=== PATIENT | male | born 1940 | race Caucasian/White ===

== ENCOUNTER 2018-10-05 12:52 | Observation (INO) | payer BC, MEDICARE, OTHER ==
[~2018-10-05] VITALS: Ht 180.3 cm; Wt 80.1 kg
--- NOTE | 2018-10-05 13:12 | NUR ---
REPORT FROM DEVIN QUIROZ. ASSUMED CARE OF PATIENT AT THIS TIME. PATIENT TO CT, AM[place].
--- NOTE | 2018-10-05 13:16 | NUR ---
EMS REPORTS PT HAS BEEN FALLING A LOT. SISTER CALLED EMS. SISTER REPORTS PT ALSO FELL IN LAST DEC. AND WAS IN ICU FOR A BRAIN BLEED. PT DID NOT SEE A NEUROLOGIST AFTER DISCHARGE. SISTER ALSO TOLD EMS THAT PATIENTS HAS BEEN DRINKING ALCOHOL AND FALLING A LOT. PT FELL 3 DAYS AGO. PT REPORTS LEFT SIDED SHOULDER PAIN. CALL LIGHT IN PLACE. REPORT GIVE TO DEVIN KLEIN
--- NOTE | 2018-10-05 13:48 | NUR ---
PATIENT TO XRAY VIA NADN. RAY
[2018-10-05 14:00] LABS: BASOPHILS # (AUTO) 0.02 x10^3/uL (0-0.1); BASOPHILS % (AUTO) 0 % (0-1); EOSINOPHILS # (AUTO) 0.04 x10^3/uL (0-0.4); EOSINOPHILS % (AUTO) 1 % (1-7); LYMPHOCYTES # (AUTO) 1.32 x10^3/uL (1-3.4); LYMPHOCYTES % (AUTO) 15 % (22-44); MD NO; MEAN PLATELET VOLUME 7.5 fL (7.4-10.4); MONOCYTES # (AUTO) 0.63 x10^3/uL (0.2-0.8); MONOCYTES % (AUTO) 7 % (2-9); NEUTROPHILS # (AUTO) 6.65 x10^3/uL (1.8-6.8); NEUTROPHILS % (AUTO) 77 % (42-75); PLATELET COUNT 267 x10^3/uL (130-400)
[2018-10-05 14:11] LABS: ALANINE AMINOTRANSFERASE 30 U/L (12-78); ALBUMIN 3.1 g/dL (3.4-5.0); ANION GAP 15 mmol/L (5-15); CALCIUM 8.6 mg/dL (8.5-10.1); CHLORIDE 101 mmol/L (98-107)
[2018-10-05 14:14] LABS: ALKALINE PHOSPHATASE 96 U/L (45-117); BILIRUBIN,TOTAL 0.7 mg/dL (0.2-1.0); TOTAL PROTEIN 6.7 g/dL (6.4-8.2)
[2018-10-05] MEDS ORDERED: ATOR-2 PO (14:42)
[2018-10-05] MEDS ORDERED: METO25TA35 PO (14:42)
[2018-10-05] MEDS ORDERED: ANTIDEPRESSANT (14:43)
[2018-10-05] MEDS ORDERED: HYDROmorphone 2 MG/ML, 1ML ONE (15:14)
--- NOTE | 2018-10-05 15:16 | NUR ---
PATIENT C/O 9/10 LT SHOULDER PAIN, ERP AWARE, NEW ORDERS, PAIN MEDICATIONS ADMINISTERED. [facility] TBADM, AWAITING BED ASSIGNMENT.
[2018-10-05] MEDS ORDERED: BACITRACIN ZINC OINT 500U/GM, 0.9 GM ONE (15:22)
--- NOTE | 2018-10-05 15:25 | NUR ---
PATIENT 78% RA POST PAIN MEDS, SUPPLEMENTAL O2 APPLIED, NOW 99% 2L NC.
[2018-10-05] MEDS ORDERED: HYDROmorphone 2 MG/ML, 1ML IVPush PRN (15:30)
--- NOTE | 2018-10-05 15:37 | NUR ---
REPORT TO DEVIN MATSON.
[2018-10-05 16:08] VITALS: BP 129/78
[2018-10-05] MEDS ORDERED: DOCUSATE 100 MG CAPSULE PO PRN (16:30)
[2018-10-05 19:31] VITALS: BP 127/78
[2018-10-05 20:06] VITALS: BP 132/86
[2018-10-05] MEDS: HEPARIN 5,000 UNITS/ML, 1ML SQ SCH (20:08)
[2018-10-05] MEDS: FAMOTIDINE 20 MG TABLET PO SCH (20:08)
[2018-10-05] MEDS: METOPROLOL TARTRATE 25 MG TABLET PO SCH (20:08)
[2018-10-06 00:34] VITALS: BP 127/64
[2018-10-06] MEDS ORDERED: ONDANSETRON 2MG/ML, 2ML ONE (01:01)
[2018-10-06] MEDS: ONDANSETRON 2MG/ML, 2ML IVPush PRN (01:04)
[2018-10-06 05:13] LABS: BASOPHILS # (AUTO) 0.02 x10^3/uL (0-0.1); BASOPHILS % (AUTO) 0 % (0-1); EOSINOPHILS # (AUTO) 0.19 x10^3/uL (0-0.4); EOSINOPHILS % (AUTO) 2 % (1-7); LYMPHOCYTES % (AUTO) 20 % (22-44); MD NO; MEAN CORPUSCULAR HEMOGLOBIN 32.1 pg (27.5-34.5); MEAN CORPUSCULAR HGB CONC 33.9 g/dL (33.2-36.2); MEAN CORPUSCULAR VOLUME 94.6 fL (81-97); MEAN PLATELET VOLUME 7.5 fL (7.4-10.4); MONOCYTES # (AUTO) 1.22 x10^3/uL (0.2-0.8); MONOCYTES % (AUTO) 16 % (2-9); NEUTROPHILS # (AUTO) 4.83 x10^3/uL (1.8-6.8); NEUTROPHILS % (AUTO) 61 % (42-75); PLATELET COUNT 265 x10^3/uL (130-400); RED BLOOD COUNT 4.58 x10^6/uL (4.38-5.82); RED CELL DISTRIBUTION WIDTH 17.2 % (9.4-14.8)
[2018-10-06 05:27] LABS: ANION GAP 6 mmol/L (5-15); CALCIUM 8.6 mg/dL (8.5-10.1); CHLORIDE 101 mmol/L (98-107)
[2018-10-06 05:32] LABS: ALANINE AMINOTRANSFERASE 30 U/L (12-78); ALKALINE PHOSPHATASE 104 U/L (45-117); BILIRUBIN,TOTAL 0.7 mg/dL (0.2-1.0); CREATININE 0.97 mg/dL (0.7-1.3); TOTAL PROTEIN 6.5 g/dL (6.4-8.2)
[2018-10-06] MEDS: METOPROLOL TARTRATE 25 MG TABLET PO SCH ×2 (05:35→18:14)
[2018-10-06] MEDS: HEPARIN 5,000 UNITS/ML, 1ML SQ SCH ×3 (05:36→21:52)
[2018-10-06 05:42] VITALS: BP 159/97
[2018-10-06] MEDS: SODIUM CHLORIDE 0.9% 1,000 ML IV SCH ×3 (07:09→23:00)
[2018-10-06] MEDS: FAMOTIDINE 20 MG TABLET PO SCH ×2 (09:01→21:53)
[2018-10-06 10:57] VITALS: BP 167/81
[2018-10-06] MEDS: ACETAMINOPHEN 325 MG TABLET PO PRN (14:54)
[2018-10-06 15:54] VITALS: BP 164/79
[2018-10-06] MEDS ORDERED: CHLORDIAZEPOXIDE 25 MG CAPSULE PO PRN (20:00)
[2018-10-06 20:51] VITALS: BP 163/93
[2018-10-07 01:30] VITALS: BP 163/94
[2018-10-07 06:07] VITALS: BP 187/105
[2018-10-07] MEDS: hydrALAzine 20 MG/ML, 1ML IV PRN (06:10)
[2018-10-07] MEDS: METOPROLOL TARTRATE 25 MG TABLET PO SCH ×2 (06:11→17:07)
[2018-10-07] MEDS: HEPARIN 5,000 UNITS/ML, 1ML SQ SCH ×3 (06:11→21:00)
[2018-10-07 06:55] VITALS: BP 174/84
[2018-10-07] MEDS: LISINOPRIL 10 MG TABLET PO SCH (08:48)
[2018-10-07] MEDS: FAMOTIDINE 20 MG TABLET PO SCH ×2 (08:48→21:00)
[2018-10-07] MEDS: ACETAMINOPHEN 325 MG TABLET PO PRN (08:48)
[2018-10-07 12:19] VITALS: BP 167/93
[2018-10-07] MEDS: SODIUM CHLORIDE 0.9% 1,000 ML IV SCH ×2 (13:00→23:00)
[2018-10-07] MEDS ORDERED: ATORVASTATIN 80 MG TABLET PO SCH (21:00)
[2018-10-07 21:44] VITALS: BP 162/81
[2018-10-08] VITALS (7 sets, daily range): BP systolic 145–184; BP diastolic 78–98
[2018-10-08] MEDS: HEPARIN 5,000 UNITS/ML, 1ML SQ SCH ×2 (06:16→13:00)
[2018-10-08] MEDS: hydrALAzine 20 MG/ML, 1ML IV PRN ×2 (06:16→08:29)
[2018-10-08] MEDS: ONDANSETRON 2MG/ML, 2ML IVPush PRN (06:17)
[2018-10-08] MEDS: METOPROLOL TARTRATE 25 MG TABLET PO SCH (06:17)
[2018-10-08] MEDS: LISINOPRIL 10 MG TABLET PO SCH (08:29)
[2018-10-08] MEDS: FAMOTIDINE 20 MG TABLET PO SCH (08:31)
[2018-10-08] MEDS: SODIUM CHLORIDE 0.9% 1,000 ML IV SCH (08:31)
[2018-10-08] MEDS ORDERED: CELE100C PO (14:19)
[2018-10-08] MEDS ORDERED: LISI-167 PO (14:19)
[2018-10-09 15:35] LABS: MEAN CORPUSCULAR HEMOGLOBIN 32.4 pg (27.5-34.5); MEAN CORPUSCULAR VOLUME 95.5 fL (81-97)
[2018-10-09 15:36] LABS: MEAN CORPUSCULAR HGB CONC 33.9 g/dL (33.2-36.2); RED CELL DISTRIBUTION WIDTH 17.2 % (9.4-14.8)
[2018-10-09 15:37] LABS: CREATININE 0.98 mg/dL (0.7-1.3)
== END 2018-10-08 17:50 | disposition home or self-care (01) ==
LOC: EDSEX 12:52 → ED 14:33 → EDIP 14:58 → INTOOBSV 14:58 → 4NOR 15:31
PROVIDERS: ADMIT Hospitalist; ATTEND Hospitalist
DX: S42.212A Unspecified displaced fracture of surgical neck of left humerus, initial encounter for closed fracture (principal); S42.255A Nondisplaced fracture of greater tuberosity of left humerus, initial encounter for closed fracture; I10 Essential (primary) hypertension; E78.5 Hyperlipidemia, unspecified; E78.00 Pure hypercholesterolemia, unspecified; F10.229 Alcohol dependence with intoxication, unspecified; J32.0 Chronic maxillary sinusitis; Z79.899 Other long term (current) drug therapy; X58.XXXA Exposure to other specified factors, initial encounter; W01.0XXA Fall on same level from slipping, tripping and stumbling without subsequent striking against object, initial encounter; Y93.89 Activity, other specified; Y92.89 Other specified places as the place of occurrence of the external cause; Y99.8 Other external cause status; Z87.891 Personal history of nicotine dependence; Z91.81 History of falling
CPT/HCPCS: 36415; 70450; 72125; 73030; 73060; 80053; 80307; 82550; 83735; 85025; 96372; 96374; 96375; 96376; 97162; 99284; G0378; G8978; G8979; G8980; J0360; J1170; J1644; J2405; J7030

== ENCOUNTER 2018-10-09 19:08 | Emergency (ER) | payer MEDICARE, OTHER ==
[~2018-10-09] VITALS: Ht 180.3 cm; Wt 77.0 kg
[~2018-10-09 19:08] MED LIST: ANTIDEPRESSANT; ATOR-2 PO; CELE100C PO; LISI-167 PO; METO25TA35 PO
[2018-10-09 20:33] LABS: BASOPHILS # (AUTO) 0.04 x10^3/uL (0-0.1); BASOPHILS % (AUTO) 0 % (0-1); EOSINOPHILS # (AUTO) 0.12 x10^3/uL (0-0.4); EOSINOPHILS % (AUTO) 1 % (1-7); LYMPHOCYTES % (AUTO) 17 % (22-44); MD NO; MEAN CORPUSCULAR HGB CONC 33.5 g/dL (33.2-36.2); MEAN CORPUSCULAR VOLUME 95.6 fL (81-97); MEAN PLATELET VOLUME 7.6 fL (7.4-10.4); MONOCYTES # (AUTO) 1.42 x10^3/uL (0.2-0.8); MONOCYTES % (AUTO) 15 % (2-9); NEUTROPHILS # (AUTO) 6.34 x10^3/uL (1.8-6.8); NEUTROPHILS % (AUTO) 67 % (42-75); PLATELET COUNT 277 x10^3/uL (130-400); RED BLOOD COUNT 4.39 x10^6/uL (4.38-5.82); RED CELL DISTRIBUTION WIDTH 16.9 % (9.4-14.8)
[2018-10-09 20:41] LABS: ALANINE AMINOTRANSFERASE 26 U/L (12-78); ALBUMIN 2.8 g/dL (3.4-5.0); ANION GAP 10 mmol/L (5-15); CALCIUM 8.3 mg/dL (8.5-10.1); CHLORIDE 98 mmol/L (98-107)
[2018-10-09 20:46] LABS: CREATININE 1.37 mg/dL (0.7-1.3)
[2018-10-09 20:47] LABS: ALKALINE PHOSPHATASE 96 U/L (45-117); BILIRUBIN,TOTAL 0.5 mg/dL (0.2-1.0); TOTAL PROTEIN 6.1 g/dL (6.4-8.2); TROPONIN I < 0.015 ng/mL (0.000-0.045)
[2018-10-09] MEDS ORDERED: SODIUM CHLORIDE 0.9% 1,000ML IVBOLUS ONE (21:00)
[2018-10-09 21:51] VITALS: BP 130/74
--- NOTE | 2018-10-09 22:00 | NUR ---
REPORT FROM DEVIN CALDERON
--- NOTE | 2018-10-09 22:39 | NUR ---
PT SIGNING OUT AMA. AMA DOCUMENT SIGNED. PT DEMONSTRATES UNDERSTANDING OF PARAMETERS OF AMA AND AGREES TO RETURN TO ED W/ NEW OR WORSENING S/S. DC EDUCATION PROVIDED. PT DEMONSTRATES UNDERSTANDING. PT PROVIDED HOSPITAL SOCKS HE WAS TRANSPORTED TO ED WO SHOES. PT REPORTS THAT HE WILL BE TAKING A TAXI FOR SAFE TRANSPORT HOME.
== END 2018-10-09 22:42 | disposition left against medical advice (07) ==
LOC: ED 21:37
DX: S42.302A Unspecified fracture of shaft of humerus, left arm, initial encounter for closed fracture (principal); F10.129 Alcohol abuse with intoxication, unspecified; R55 Syncope and collapse; W19.XXXA Unspecified fall, initial encounter; Y93.89 Activity, other specified; Y92.009 Unspecified place in unspecified non-institutional (private) residence as the place of occurrence of the external cause; Y99.8 Other external cause status
CPT/HCPCS: 36415; 70450; 71045; 80053; 84484; 85025; 93005; 99284; J7030

== ENCOUNTER 2018-11-05 16:34 | Emergency (ER) | payer OTHER ==
[~2018-11-05] VITALS: Ht 182.9 cm; Wt 85.0 kg
[~2018-11-05 16:34] MED LIST changes: +amlodipine PO; +magnesium PO
--- NOTE | 2018-11-05 16:46 | NUR ---
CODE 250 NOTE: CODE 250 CALLED BY SECURITY WHEN PATIENT FELL IN LOBBY. STAFF RESPONDED AND PLACED PATIENT IN C-COLLAR AND ON RIGID SPINE BOARD. CMS PRESENT BEFORE AND AFTER BACKBOARDING. NO BLEEDING NOTED, AIRWAY CLEAR, BREATHING REGULAR, STRONG RADIAL PULSES PRESENT. PATIENT TAKEN BACK TO ED ROOM FOR EVALUATION.
--- NOTE | 2018-11-05 17:10 | NUR ---
PATIENT TAKEN OFF BACK BOARD WITH MD. PATIENT VERBALLY AGREES TO STAY IN BED. EKG DONE. PATIENT CHANGED OUT OF GOWN. AWAITING TEST RESULTS
--- NOTE | 2018-11-05 17:16 | NUR ---
LAB AT AND CT WAITING FOR PATIENT. SPOKE BRIEFLY WITH SISTER OF PATIENT WHILE IN THE ROOM WITH PATIENT. SHE REPORTS THAT 'HE HAS BEEN DRINKING ALCOHOL NON-STOP SINCE THE LAST TIME SHE WAS IN TOWN"
[2018-11-05 17:27] LABS: BASOPHILS # (AUTO) 0.04 x10^3/uL (0-0.1); BASOPHILS % (AUTO) 0 % (0-1); EOSINOPHILS # (AUTO) 0.06 x10^3/uL (0-0.4); EOSINOPHILS % (AUTO) 1 % (1-7); LYMPHOCYTES % (AUTO) 20 % (22-44); MD NO; MEAN CORPUSCULAR HEMOGLOBIN 32.7 pg (27.5-34.5); MEAN CORPUSCULAR VOLUME 96.2 fL (81-97); MEAN PLATELET VOLUME 7.6 fL (7.4-10.4); MONOCYTES # (AUTO) 0.68 x10^3/uL (0.2-0.8); MONOCYTES % (AUTO) 5 % (2-9); NEUTROPHILS # (AUTO) 9.21 x10^3/uL (1.8-6.8); NEUTROPHILS % (AUTO) 74 % (42-75); PLATELET COUNT 274 x10^3/uL (130-400); RED BLOOD COUNT 5.07 x10^6/uL (4.38-5.82); RED CELL DISTRIBUTION WIDTH 15.4 % (9.4-14.8)
[2018-11-05 17:37] LABS: ANION GAP 11 mmol/L (5-15); CALCIUM 8.4 mg/dL (8.5-10.1); CHLORIDE 105 mmol/L (98-107)
--- NOTE | 2018-11-05 17:45 | NUR ---
COMFORT MEASURES TAKEN, BLANKETS GIVEN, LIGHTS TURNED OFF PER REQUEST. AWAITING ALL RESULTS
--- NOTE | 2018-11-05 17:55 | NUR ---
MD IN WITH PATIENT TO EXPLAIN THE RECCOMENDATION FO STAYING OVERNIGHT. PATIENT REPORTS THAT HE DOES NOT WANT TO STAY. WAITING FOR ALL RESULTS.
[2018-11-05 18:13] LABS: INTERNATIONAL NORMALIZED RATIO 0.95 (0.93-1.1)
--- NOTE | 2018-11-05 18:46 | NUR ---
PATIENT MOVED TO ROOM 17 FOR CLOSER OBSERVATION BY NURING STATION. PATIENT COOPERATIVE AT THIS TIME
--- NOTE | 2018-11-05 19:23 | NUR ---
PT WOULD LIKE TO LEAVE BUT IS COOPERATIVE TAB GUERRERO EXPLAINED TO PATIENT THE REASON HE NEEDS TO STAY (AGAIN). RE-ESTABLISHED MONITOR, BP, AND PULSE OX. COMFORT MEASURES GIVEN
--- NOTE | 2018-11-05 20:15 | NUR ---
PATIENT MOVED TO ROOM 40 TO HAVE SITER AND [facility] ROOM. AFTER PATIENT CLIMBED OUT OF BED, GOT DRESSED, AND WAS ASSITED TO BATHROOM. PATIENT WOULD LIKE TO GO HOME. PATIENT REPORT TO DEE BELTRAN. PATIENT UPDATED ON PLAN OF CARE. PATIENT COOPERATIVE AT THIS TIME, BUT INSISTS THAT HE DOES NOT WANT TO STAY OVER NIGHT
--- NOTE | 2018-11-05 20:48 | NUR ---
pt sleeping in [facility]. sitter monitoring pt from [facility]. room remains secure.
[2018-11-05 22:52] VITALS: BP 106/72
--- NOTE | 2018-11-05 22:56 | NUR ---
PT GIVEN DC INSTRUCTIONS. PT AMB TO DC WITH STEADY GAIT. PT PROVIDED TAXI VOUCHER AT DC. NO ACUTE DISTRESS AT DC.
== END 2018-11-05 22:54 | disposition home or self-care (01) ==
LOC: ED 16:43
DX: I61.9 Nontraumatic intracerebral hemorrhage, unspecified (principal); S02.19XA Other fracture of base of skull, initial encounter for closed fracture; S09.8XXA Other specified injuries of head, initial encounter; I60.9 Nontraumatic subarachnoid hemorrhage, unspecified; F10.229 Alcohol dependence with intoxication, unspecified; I10 Essential (primary) hypertension; E78.5 Hyperlipidemia, unspecified; W19.XXXA Unspecified fall, initial encounter; Y93.89 Activity, other specified; Y92.239 Unspecified place in hospital as the place of occurrence of the external cause; Y99.8 Other external cause status
CPT/HCPCS: 36415; 70450; 80048; 80307; 85025; 85610; 85730; 93005

== ENCOUNTER 2018-11-13 15:18 | Inpatient (IN) | payer MEDICARE, OTHER ==
[~2018-11-13] VITALS: Ht 180.3 cm; Wt 78.0 kg
--- NOTE | 2018-11-13 15:46 | NUR ---
EPS MESSAGE LEFT NON-EMERGENT [employer] MESSAGE
--- NOTE | 2018-11-13 15:53 | NUR ---
SITTER AT BS
[2018-11-13] MEDS ORDERED: PLEASE ENTER HEIGHT AND WEIGHT MC SCH (16:00)
[2018-11-13] MEDS ORDERED: SODIUM CHLORIDE FLUSH 10ML SYR IVF ONE (16:00)
--- NOTE | 2018-11-13 16:06 | NUR ---
[employer] TO ATTEMPT WELL CHECK ON PATIENT'S MOTHER, JT DENSON. [employer] WILL ATTEMPT A WELL CHECK.
--- NOTE | 2018-11-13 16:12 | NUR ---
INCIDENT REPORT FILED WITH [employer] ONLINE
[2018-11-13 16:26] LABS: ALANINE AMINOTRANSFERASE 24 U/L (12-78); ALBUMIN 3.5 g/dL (3.4-5.0); ANION GAP 12 mmol/L (5-15); CALCIUM 8.1 mg/dL (8.5-10.1); CHLORIDE 105 mmol/L (98-107)
[2018-11-13 16:31] LABS: ALKALINE PHOSPHATASE 94 U/L (45-117); BILIRUBIN,TOTAL 0.5 mg/dL (0.2-1.0); CREATININE 0.87 mg/dL (0.7-1.3); TOTAL PROTEIN 6.6 g/dL (6.4-8.2); TROPONIN I < 0.015 ng/mL (0.000-0.045)
[2018-11-13 16:36] LABS: INTERNATIONAL NORMALIZED RATIO 0.91 (0.93-1.1); PROTHROMBIN TIME 9.6 Seconds (9.6-11.5)
[2018-11-13 16:42] LABS: BASOPHILS # (AUTO) 0.02 x10^3/uL (0-0.1); BASOPHILS % (AUTO) 0 % (0-1); EOSINOPHILS # (AUTO) 0.19 x10^3/uL (0-0.4); EOSINOPHILS % (AUTO) 2 % (1-7); LYMPHOCYTES # (AUTO) 1.83 x10^3/uL (1-3.4); LYMPHOCYTES % (AUTO) 23 % (22-44); MD NO; MEAN CORPUSCULAR HEMOGLOBIN 31.8 pg (27.5-34.5); MEAN CORPUSCULAR HGB CONC 33.2 g/dL (33.2-36.2); MEAN CORPUSCULAR VOLUME 95.7 fL (81-97); MEAN PLATELET VOLUME 7.3 fL (7.4-10.4); MONOCYTES # (AUTO) 0.58 x10^3/uL (0.2-0.8); MONOCYTES % (AUTO) 7 % (2-9); NEUTROPHILS # (AUTO) 5.48 x10^3/uL (1.8-6.8); NEUTROPHILS % (AUTO) 68 % (42-75); PLATELET COUNT 257 x10^3/uL (130-400); RED BLOOD COUNT 4.75 x10^6/uL (4.38-5.82); RED CELL DISTRIBUTION WIDTH 15.6 % (9.4-14.8)
--- NOTE | 2018-11-13 16:44 | NUR ---
JOSSELYN AT . PATIENT CURRENTLY COOPERATIVE. PATIENT LABS DRAWN.
[2018-11-13] MEDS ORDERED: SODIUM CHLORIDE 0.9% 1,000 ML IV ONE (17:05)
--- NOTE | 2018-11-13 17:10 | NUR ---
SITTER AT BS. ADMIT MD AT BS
[2018-11-13] MEDS ORDERED: LORazepam 1MG TABLET PO PRN ×4 (17:30)
[2018-11-13] MEDS ORDERED: LORazepam 0.5MG TABLET PO PRN (17:30)
[2018-11-13] MEDS ORDERED: LORazepam 2 MG/ML, 1ML IV PRN ×5 (17:30)
[2018-11-13] MEDS ORDERED: ONDANSETRON ODT 4 MG PO PRN (17:30)
[2018-11-13] MEDS ORDERED: THIAMINE 100MG TABLET PO ONE (17:30)
[2018-11-13] MEDS ORDERED: SODIUM CHLORIDE FLUSH 10ML SYR IVF PRN (17:30)
[2018-11-13] MEDS ORDERED: ONDANSETRON 2MG/ML, 2ML IVPush PRN (17:30)
--- NOTE | 2018-11-13 18:12 | NUR ---
REPORT TO VITALIY BELTRAN
[2018-11-13 18:38] VITALS: BP 112/68
[2018-11-13] MEDS: LEVETIRACETAM 500 MG TABLET PO SCH (20:45)
[2018-11-13] MEDS ORDERED: DESV100T10 PO (20:52)
--- NOTE | 2018-11-13 20:56 | NUR ---
SUP: PT CHECKBOOK WAS LEFT IN ED, SENT TO SUP AT BED MEETING FOR ROOM 485
[2018-11-14] VITALS (8 sets, daily range): BP systolic 123–180; BP diastolic 76–92
[2018-11-14 01:39] LABS: MICROSCOPIC INDICATED
[2018-11-14 01:47] LABS: CULTURE INDICATED? NO
[2018-11-14] MEDS: SODIUM CHLORIDE 0.9% 1,000 ML IV SCH ×2 (02:36→20:23)
[2018-11-14] MEDS: LEVETIRACETAM 500 MG TABLET PO SCH ×2 (11:45→20:23)
[2018-11-14] MEDS: METOPROLOL TARTRATE 25 MG TABLET PO SCH (11:46)
[2018-11-14] MEDS: LISINOPRIL 20 MG TABLET PO SCH (11:46)
[2018-11-14] MEDS: MELATONIN 5 MG TABLET PO PRN (20:23)
[2018-11-14] MEDS: ACETAMINOPHEN 325 MG TABLET PO PRN (20:35)
[2018-11-15 01:46] VITALS: BP 143/81
[2018-11-15] MEDS: ACETAMINOPHEN 325 MG TABLET PO PRN ×3 (04:23→18:21)
[2018-11-15 07:59] VITALS: BP 134/78
[2018-11-15] MEDS: METOPROLOL TARTRATE 25 MG TABLET PO SCH (09:40)
[2018-11-15] MEDS: LEVETIRACETAM 500 MG TABLET PO SCH ×2 (09:40→20:01)
[2018-11-15] MEDS: LISINOPRIL 20 MG TABLET PO SCH (09:40)
[2018-11-15] MEDS: SODIUM CHLORIDE 0.9% 1,000 ML IV SCH (12:20)
[2018-11-15 13:58] VITALS: BP 162/81
[2018-11-15 18:47] VITALS: BP 165/77
[2018-11-15] MEDS: MELATONIN 5 MG TABLET PO PRN (21:24)
[2018-11-16] MEDS: ACETAMINOPHEN 325 MG TABLET PO PRN ×3 (00:30→20:11)
[2018-11-16 00:34] VITALS: BP 140/85
[2018-11-16] MEDS: SODIUM CHLORIDE 0.9% 1,000 ML IV SCH ×2 (05:25→20:12)
[2018-11-16 08:13] VITALS: BP 147/78
[2018-11-16] MEDS: LISINOPRIL 20 MG TABLET PO SCH (09:40)
[2018-11-16] MEDS: LEVETIRACETAM 500 MG TABLET PO SCH ×2 (09:40→20:11)
[2018-11-16] MEDS: METOPROLOL TARTRATE 25 MG TABLET PO SCH ×2 (09:40→20:12)
[2018-11-16 14:43] VITALS: BP 140/72
[2018-11-16 20:07] VITALS: BP 154/84
[2018-11-16] MEDS: MELATONIN 5 MG TABLET PO PRN (20:11)
[2018-11-17 02:00] VITALS: BP 133/81
[2018-11-17] MEDS: ACETAMINOPHEN 325 MG TABLET PO PRN ×4 (03:36→22:45)
[2018-11-17 07:13] VITALS: BP 156/89
[2018-11-17] MEDS: METOPROLOL TARTRATE 25 MG TABLET PO SCH ×2 (09:56→19:59)
[2018-11-17] MEDS: AMLODIPINE 2.5 MG TABLET PO SCH (09:57)
[2018-11-17] MEDS: LEVETIRACETAM 500 MG TABLET PO SCH ×2 (09:57→19:59)
[2018-11-17] MEDS: LISINOPRIL 20 MG TABLET PO SCH (09:57)
[2018-11-17 13:40] VITALS: BP 149/83
[2018-11-17] MEDS: SODIUM CHLORIDE 0.9% 1,000 ML IV SCH (15:07)
[2018-11-17] MEDS: MELATONIN 5 MG TABLET PO PRN (19:59)
[2018-11-17 20:08] VITALS: BP 154/95
[2018-11-18 02:51] VITALS: BP 161/94
[2018-11-18] MEDS: SODIUM CHLORIDE 0.9% 1,000 ML IV SCH (07:18)
[2018-11-18 08:00] VITALS: BP 175/89
[2018-11-18] MEDS: METOPROLOL TARTRATE 25 MG TABLET PO SCH ×2 (08:29→20:32)
[2018-11-18] MEDS: ISOSORBIDE DINITRATE 10 MG TABLET PO SCH ×3 (08:29→20:34)
[2018-11-18] MEDS: LEVETIRACETAM 500 MG TABLET PO SCH ×2 (08:29→20:31)
[2018-11-18] MEDS: LISINOPRIL 20 MG TABLET PO SCH (08:30)
[2018-11-18] MEDS: AMLODIPINE 2.5 MG TABLET PO SCH (08:33)
[2018-11-18] MEDS: ACETAMINOPHEN 325 MG TABLET PO PRN ×2 (11:58→20:30)
[2018-11-18 14:17] VITALS: BP 131/77
[2018-11-18 19:24] VITALS: BP 145/64
[2018-11-18] MEDS: MELATONIN 5 MG TABLET PO PRN (20:31)
[2018-11-19] MEDS: SODIUM CHLORIDE 0.9% 1,000 ML IV SCH (00:11)
[2018-11-19 03:29] VITALS: BP 128/74
[2018-11-19 08:00] VITALS: BP 160/90
[2018-11-19] MEDS ORDERED: ISOS30TA8 PO (08:07)
[2018-11-19] MEDS ORDERED: FOLI-17 PO (08:07)
[2018-11-19] MEDS ORDERED: MELA5TAB19 PO (08:07)
[2018-11-19] MEDS ORDERED: MULT1TAB60 PO (08:07)
[2018-11-19] MEDS ORDERED: MAGN400T7 PO (08:07)
[2018-11-19] MEDS ORDERED: METO25TA35 PO (08:07)
[2018-11-19] MEDS ORDERED: THIA100T67 PO (08:07)
[2018-11-19] MEDS: LEVETIRACETAM 500 MG TABLET PO SCH (08:29)
[2018-11-19] MEDS: AMLODIPINE 2.5 MG TABLET PO SCH (08:29)
[2018-11-19] MEDS: LISINOPRIL 20 MG TABLET PO SCH (08:29)
[2018-11-19] MEDS: METOPROLOL TARTRATE 25 MG TABLET PO SCH (08:29)
[2018-11-19] MEDS: ISOSORBIDE DINITRATE 10 MG TABLET PO SCH (08:29)
[2018-11-19] MEDS ORDERED: LEVE500T53 PO (09:04)
== END 2018-11-19 12:37 | disposition home or self-care (01) | DRG 86 ==
LOC: ED 16:58 → EDIP 17:17 → 4EST 18:29
PROVIDERS: ADMIT Internal Medicine; ATTEND Emergency Medicine
DX: S06.5X1A Traumatic subdural hemorrhage with loss of consciousness of 30 minutes or less, initial encounter (principal); F10.221 Alcohol dependence with intoxication delirium; F10.239 Alcohol dependence with withdrawal, unspecified; I62.03 Nontraumatic chronic subdural hemorrhage; E78.5 Hyperlipidemia, unspecified; G47.30 Sleep apnea, unspecified; I10 Essential (primary) hypertension; W18.39XA Other fall on same level, initial encounter; Y93.89 Activity, other specified; Y92.89 Other specified places as the place of occurrence of the external cause; Y99.8 Other external cause status
CPT/HCPCS: 36415; 70450; 71045; 80053; 80307; 81001; 82140; 83735; 84484; 85025; 85610; 85730; 93005; 99285; G0378; J7030

== ENCOUNTER 2018-12-20 14:31 | Emergency (ER) | payer OTHER ==
[~2018-12-20] VITALS: Ht 172.7 cm; Wt 85.0 kg
[~2018-12-20 14:31] MED LIST changes: +DESV100T10 PO; +FOLI-17 PO; +ISOS30TA8 PO; +LEVE500T53 PO; +MAGN400T7 PO; +MELA5TAB19 PO; +MULT1TAB60 PO; +THIA100T67 PO
[2018-12-20 14:41] VITALS: BP 107/63
--- NOTE | 2018-12-20 14:53 | NUR ---
PT PLACED ON BP CUFF, PULSE OX, HEART MONITOR. PT WITH EQUAL HOTEL STAFF MEMBER, CHARITO. PT FOLLOWS COMMANDS, ORIENTATION X PERSON, PLACE. PT DOES NOT REMEMBER EVENT AND UNABLE TO GIVE CORRECT DATE, STATING YEAR IS "2019" AND CANNOT PROVIDE MONTH. PT STATES HE TOOK UBER TO [facility] FOR LUNCH AND DRINKS BY SELF, LIVES ALONE. REVIEW OF PREVIOUS VISITS SHOW ETOH INTOXICATION COMPLAINT. BED IN LOW POSITION, CALL LIGHT WITHIN REACH, SR UP X 2. PT ORIENTED TO CALL LIGHT.
--- NOTE | 2018-12-20 14:58 | NUR ---
PT SLEEPING, UPDATED ON POC. URINAL AT BS, PT AWARE OF NEED FOR UA. CALL LIGHT WITHIN REACH.
[2018-12-20 15:22] LABS: BASOPHILS # (AUTO) 0.02 x10^3/uL (0-0.1); BASOPHILS % (AUTO) 0 % (0-1); EOSINOPHILS % (AUTO) 2 % (1-7); LYMPHOCYTES # (AUTO) 2.27 x10^3/uL (1-3.4); LYMPHOCYTES % (AUTO) 37 % (22-44); MD NO; MEAN CORPUSCULAR HEMOGLOBIN 32.5 pg (27.5-34.5); MEAN CORPUSCULAR HGB CONC 34.4 g/dL (33.2-36.2); MEAN CORPUSCULAR VOLUME 94.5 fL (81-97); MEAN PLATELET VOLUME 7.3 fL (7.4-10.4); MONOCYTES % (AUTO) 11 % (2-9); NEUTROPHILS # (AUTO) 3.01 x10^3/uL (1.8-6.8); NEUTROPHILS % (AUTO) 49 % (42-75); PLATELET COUNT 253 x10^3/uL (130-400); RED BLOOD COUNT 4.55 x10^6/uL (4.38-5.82); RED CELL DISTRIBUTION WIDTH 14.7 % (9.4-14.8)
--- NOTE | 2018-12-20 15:25 | NUR ---
LABS DRAWN, XR COMPLETED, AWAITING CT. PT ASSISTED TO REPOSITION.
[2018-12-20 15:32] LABS: ALANINE AMINOTRANSFERASE 59 U/L (12-78); ALBUMIN 3.3 g/dL (3.4-5.0); ANION GAP 10 mmol/L (5-15); CHLORIDE 112 mmol/L (98-107); CREATININE 0.79 mg/dL (0.7-1.3)
--- NOTE | 2018-12-20 15:35 | NUR ---
PT TO CT.
[2018-12-20 15:37] LABS: ALKALINE PHOSPHATASE 89 U/L (45-117); BILIRUBIN,TOTAL 0.2 mg/dL (0.2-1.0); TOTAL PROTEIN 6.4 g/dL (6.4-8.2); TROPONIN I < 0.015 ng/mL (0.000-0.045)
--- NOTE | 2018-12-20 16:02 | NUR ---
REPORT FROM MARYAM BELTRAN. AT THIS TIME PT GETTING OUT OF BED AND WANTING TO LEAVE. PT REDIRECTED TO BED WITH TECH AT BEDSIDE. JOHN CABRERA INFORMED AND PROVIDER TO ROOM TO REDUCATE PT ON PLAN OF CARE. AT THIS TIME PT AGREES WITH PLAN OF CARE.
--- NOTE | 2018-12-20 16:07 | NUR ---
MULTIPLE ATTEMPTS TO REDIRECT PT BACK TO BED. TECH AT BEDSIDE AT THIS TIME.
== END 2018-12-20 16:33 | disposition home or self-care (01) ==
LOC: ED 16:17
DX: F10.129 Alcohol abuse with intoxication, unspecified (principal); I10 Essential (primary) hypertension; E78.5 Hyperlipidemia, unspecified
CPT/HCPCS: 36415; 70450; 71045; 80053; 80307; 84484; 85025; 93005; 99284

== ENCOUNTER 2019-01-04 11:54 | Emergency (ER) | payer OTHER ==
[~2019-01-04] VITALS: Ht 182.9 cm; Wt 67.0 kg
--- NOTE | 2019-01-04 12:00 | NUR ---
BIB EMS FROM HOME. PT WAS FOUND BY HIS CAREGIVER ON THE FLOOR NEXT TO THE BED. PT DOES NOT REMEMBER FALLING. EMS ASSISTED PT TO SIT ON BED BUT PT WAS TOO WEAK TO SUPPORT SELF. EMS WITNESSED +SYNCOPAL EPISODE AND SBP OF 80. IV ACCESS EST AND 1LITER NS GIVEN WITH EFFECT. PT NOW PRESENTS AWAKE, ALERT, ORIENTED TO PERSON, PLACE AND FOLLOWS COMMANDS. PT ADMITS TO DRINKING DAILY. PT DOES NOT APPEAR INTOXICATED AND NO ALOHOL ODOR NOTED.
[2019-01-04] MEDS ORDERED: THIAMINE 100MG TABLET ONE (12:24)
[2019-01-04] MEDS ORDERED: THIAMINE 100MG TABLET PO ONE (12:30)
--- NOTE | 2019-01-04 12:31 | NUR ---
PTS SON MICHELET SHANNON CALLED FROM [place], [place]. PT GAVE VERBAL APPROVAL TO THIS RN TO DISCUSS CARE WITH SON. SON UPDATED AND QUESTIONS ANSWERED. SO RPTS THAT THE CAREGIVER AT THE HOUSE WAS ACTUALLY THE PTS NIECE, VITA. VITA RPT TO THE SON THAT MR ROSARIO HAD PURCHASED A LG BOTTLE OF TEQUILLA LESS THAN 24 HRS AGO AND THAT THE BOTTLE WAS FOUND BE HER THIS MORNING EMPTY. MICHELET REQUESTING ADJUNCT FACULTY INSTRUCTOR TO CONSULT. DR. HASSAN UPDATED. NEW ORDERS REC'D.
[2019-01-04 12:35] LABS: BASOPHILS # (AUTO) 0.02 x10^3/uL (0-0.1); BASOPHILS % (AUTO) 0 % (0-1); EOSINOPHILS # (AUTO) 0.09 x10^3/uL (0-0.4); EOSINOPHILS % (AUTO) 1 % (1-7); LYMPHOCYTES # (AUTO) 2.96 x10^3/uL (1-3.4); LYMPHOCYTES % (AUTO) 45 % (22-44); MD NO; MEAN CORPUSCULAR HEMOGLOBIN 31.5 pg (27.5-34.5); MEAN CORPUSCULAR HGB CONC 33.3 g/dL (33.2-36.2); MEAN CORPUSCULAR VOLUME 94.8 fL (81-97); MONOCYTES # (AUTO) 0.53 x10^3/uL (0.2-0.8); MONOCYTES % (AUTO) 8 % (2-9); NEUTROPHILS % (AUTO) 45 % (42-75); PLATELET COUNT 201 x10^3/uL (130-400); RED BLOOD COUNT 4.77 x10^6/uL (4.38-5.82); RED CELL DISTRIBUTION WIDTH 15.2 % (9.4-14.8)
[2019-01-04 12:37] LABS: CHLORIDE 104 mmol/L (98-107)
--- NOTE | 2019-01-04 12:46 | NUR ---
MICHELET SHANNON, (SON) [phone]
[2019-01-04 12:48] LABS: ALANINE AMINOTRANSFERASE 30 U/L (12-78); ALBUMIN 3.2 g/dL (3.4-5.0); ALKALINE PHOSPHATASE 74 U/L (45-117); ANION GAP 11 mmol/L (5-15); BILIRUBIN,TOTAL 0.5 mg/dL (0.2-1.0); CALCIUM 8.1 mg/dL (8.5-10.1); CREATINE KINASE, TOTAL 48 U/L (39-308); CREATININE 0.89 mg/dL (0.7-1.3); TOTAL PROTEIN 6.5 g/dL (6.4-8.2)
--- NOTE | 2019-01-04 12:53 | NUR ---
REJI HEBERT AT BEDSIDE, SBAR RPT REVIEWED
--- NOTE | 2019-01-04 14:16 | NUR ---
PT OOB AMBULATE TO BATHROOM WITH RN STANDBY ASSIST. VOIDED W/O DIFFICULTY AND RTD TO ROOM. CALL LIGHT W/I REACH
[2019-01-04] MEDS ORDERED: LORazepam 1MG TABLET ONE (15:45)
--- NOTE | 2019-01-04 15:50 | NUR ---
PT IS GETTING RESTLESS, FORGETTING TO USE CALL LIGHT. POC REVIEWED AND QUESTIONS ANSWERED. PT AGREES WITH PLAN FOR ALCOHOL DETOX AND AWARE THAT WE ARE WAITING FOR ACCEPTANCE BY [facility]. PT MED NOTED. MOVED TO ROOM 27 FOR CLOSER VISUAL MONITORING BY RN
[2019-01-04] MEDS ORDERED: LORazepam 1MG TABLET PO ONE (16:00)
--- NOTE | 2019-01-04 16:16 | NUR ---
SISTER, DIAN IN [place] [phone]
--- NOTE | 2019-01-04 16:28 | NUR ---
PT SLEEPING, RESP EVEN NON-LABORED, VSS
--- NOTE | 2019-01-04 16:49 | NUR ---
BREAK NOTE: PT. REMAINS MONITORED AND IS RESTING WITHOUT CONCERNS. VSS.
[2019-01-04 18:45] VITALS: BP 110/62
--- NOTE | 2019-01-04 18:46 | NUR ---
Patient/Caregiver given discharge instructions and they have confirmed that they understand the instructions. Patient ambulatory with steady gait. Pt agrees to plan for family to transport him directly to [facility] for alcohol detox treatment. I contacted Heladio Larsen at [facility] and they have a bed and will be able to recieve him.
== END 2019-01-04 18:47 | disposition home or self-care (01) ==
LOC: ED 14:42
DX: S00.83XA Contusion of other part of head, initial encounter (principal); F10.220 Alcohol dependence with intoxication, uncomplicated; I10 Essential (primary) hypertension; E78.5 Hyperlipidemia, unspecified; W06.XXXA Fall from bed, initial encounter; Y93.89 Activity, other specified; Y92.009 Unspecified place in unspecified non-institutional (private) residence as the place of occurrence of the external cause; Y99.8 Other external cause status
CPT/HCPCS: 36415; 70450; 80053; 80307; 82550; 85025; 99284